=== PATIENT | female | born 1975 | race Caucasian/White ===

== ENCOUNTER → 2016-10-03 | Outpatient (CLI) | payer OTHER ==
--- NOTE | 2016-10-04 13:57 | MAMMOGRAPHY REPORT ---
BILATERAL DIGITAL SCREENING MAMMOGRAM TOMOSYNTHESIS WITH CAD: 10/03/2016 CLINICAL HISTORY: Routine screening. Baseline exam. TECHNIQUE: Breast tomosynthesis in addition to standard 2D mammography was performed. Current study was also evaluated with a Computer Aided Detection (CAD) system. COMPARISON: No prior exams were available for comparison. BREAST COMPOSITION: The tissue of both breasts is heterogeneously dense, which may obscure small mas ses. FINDINGS: There is a round completely circumscribed benign-appearing 4 mm mass in the 6:00 left breas t. A few benign-appearing right breast calcifications. No suspicious mass, architectural distortion or cluster of microcalcifications is seen. IMPRESSION: ACR BI-RADS CATEGORY 1: NEGATIVE There is no mammographic evidence of malignancy. A 1 year screening mammogram is recommended. The pa tient will receive written notification of the results. Approximately 10% of breast cancers are not detected with mammography. A negative mammographic report should not delay biopsy if a clinically suggestive mass is present. Monserrat Foster M.D. ay/:10/03/2016 17:11:02 Boiler Room Operator: Vivien HAN(Tod)(Judi)(BD), [facility] letter sent: Normal 1/2 BI-RADS Code: ACR BI-RADS Category 1: Negative
== END | disposition home or self-care (01) ==
LOC: C.MAMM 14:29
PROVIDERS: ATTEND Nurse Practitioner Women's Health
DX: Z12.31 Encounter for screening mammogram for malignant neoplasm of breast (principal)

== ENCOUNTER 2019-03-25 21:53 | Inpatient (IN) ==
[2019-03-25 22:54] LABS: Appearance Urine Cloudy (Clear); Bacteria Urine Automated Negative (Negative); Bilirubin Urine 2+ (Negative); Blood Urine Trace (Negative); Color Urine Dark Yellow; Epithelial Cell Urine Auto >30 /lpf (0-5); Glucose Urine UA Negative (Negative); Leukocyte Esterase Urine 1+ (Negative); Nitrite Urine Negative (Negative); Protein Urine 1+ (Negative); Specific Gravity Urine 1.021 (1.000-1.030); Urobilinogen Urine Negative (Negative)
[2019-03-25 22:56] LABS: Ketones Urine 4+ (Negative)
[2019-03-25 22:58] LABS: Ictotest Urine Positive (Negative)
[2019-03-25 23:02] LABS: Mucus Urine Present (None Prsent)
[2019-03-25 23:12] LABS: Basophils # (auto) 0.04 K/uL (0-0.2); Basophils % (auto) 0.8 %; Eosinophils # (auto) 0.09 K/uL (0-0.5); Eosinophils % (auto) 1.9 %; Hematocrit (blood only) 40.3 % (37-47); Hemoglobin 15.1 g/dL (12.0-16.0); Immature Granulocytes # (auto) 0.01 K/uL (0.00-0.02); Immature Granulocytes % (auto) 0.2 %; Lymphocytes # (auto) 1.35 K/uL (1.2-3.4); Mean Corpuscular Hemoglobin 30.3 pg (25-34); Mean Corpuscular Hgb Conc 37.5 g/dL (32-36); Mean Corpuscular Volume 80.8 fL (80-100); Mean Platelet Volume 10.2 fL (7.4-10.4); Monocytes # (auto) 0.76 K/uL (0.11-0.59); Monocytes % (auto) 15.8 %; Neutrophils # (auto) 2.57 K/uL (1.4-6.5); Neutrophils % (auto) 53.3 %; Platelet Count 240 K/uL (130-400); RDW Standard Deviation 40.8 fL (36.4-46.3); Red Blood Count 4.99 M/uL (4.2-5.4); White Blood Count 4.82 K/uL (4.8-10.8)
[2019-03-25] MEDS ORDERED: SODIUM CHLORIDE 0.9% 1000ML 1,000 ML IV ONE (23:15)
[2019-03-25 23:39] LABS: Alanine Aminotransferase 171 U/L (12-78); Albumin Globulin Ratio 1.2 (0.9-2); Alkaline Phosphatase 41 U/L (45-117); Aspartate Aminotransferase 113 U/L (15-37); BUN Creatinine Ratio 10.6 (10-20); Bilirubin,Total 2.3 mg/dl (0.2-1); Blood Urea Nitrogen 10 mg/dl (7-18); Calcium 9.1 mg/dl (8.5-10.1); Carbon Dioxide 25 mmol/L (21-32); Chloride 94 mmol/L (98-107); Creatine Kinase 75 U/L (26-192); Creatine Kinase MB < 1.0 ng/ml (0.5-3.6); Creatinine Clr Calc Pharmacy 66.7 ml/min; Est GFR (African American) 90.8; Est GFR (Non-African American) 78.3; Globulin 3.4 gm/dl (2.5-4.0); Glucose 98 mg/dl (70-99); Lipase 243 U/L (73-393); Potassium 2.3 mmol/L (3.5-5.1); Sodium 134 mmol/L (136-145); Total Protein 7.4 gm/dl (6.4-8.2); Troponin I < 0.015 ng/ml (0-0.045)
[2019-03-25] MEDS ORDERED: POTASSIUM CHLORIDE 20 MEQ TABCR PO STA (23:42)
[2019-03-25] MEDS ORDERED: ONDANSETRON INJ 2 MG/ML 2 ML VIAL IV STA (23:42)
[2019-03-25] MEDS ORDERED: IOVERSOL 100ml IV PRN (23:46)
[2019-03-26] MEDS ORDERED: SUCRALFATE 1 GM TAB PO STA (00:49)
[2019-03-26] MEDS ORDERED: GI COCKTAIL ED USE PO ONE (00:49)
[2019-03-26] MEDS ORDERED: FAMOTIDINE 40 MG TABLET PO ONE (00:49)
--- NOTE | 2019-03-26 02:04 | Emergency Department Note ---
Entered by Anni Hills acting as a scribe for History of Present Illness General Chief complaint: Abdominal Pain Stated complaint: STOMACH DISCOMFORT Time Seen by Provider: 03/25/19 22:18 Source: patient Mode of arrival: ambulatory Limitations: no limitations History of Present Illness Onset (ago): week(s) 1 Location: abdomen Radiation: non-radiation Pain Consistency: + constant Maximum Pain Intensity: 6 Current Pain Intensity: 6 Relieved By: + none Exacerbated By: + none Associated symptoms: + loss of appetite and + nausea/vomiting Treatments prior to arrival: none The patient is a 43 year old female who presents to the Emergency Room with complaints of abdominal pain. She rates her discomfort as a 6/10 in severity. Her pain is not worsened by palpation. She states the pain started last week and she has also had difficulty eating due to a loss of appetite. She report she has not eaten in 2 weeks. She complains of nausea and vomiting. She denies any history of marijuana smoking. Home Medications Home Medications Medication Instructions Recorded Confirmed Type amoxicillin 500 mg PO TID 10 Days #30 cap 03/26/19 Rx famotidine [Pepcid] 40 mg PO HS #30 tab 03/26/19 Rx ondansetron HCl [Zofran] 4 mg PO Q6H PRN #6 tab 03/26/19 Rx Allergies Allergy/AdvReac Type Severity Reaction Status Date / Time ibuprofen AdvReac Intermediate stomach Verified 11/21/12 09:12 ulcers Past Med/Surg History Medical History Abdominal pain (Acute) Constipation (Acute) Headache (Acute) Ulcerated, duodenum (Resolved) Social History Preferred Language: Mongolian Communication Ability: Effective Iv Therapy Nurse Required: No Beliefs That Will Affect Care: None Current Living Situation: Other Current Living Situation Comment: Roommate Other Information That Helps Us Care for You: No Feels Safe at Home: Yes Safety Concerns: Feels Safe At This Time Smoking Status: Never smoker Hx Alcohol Use: No Hx Substance Use: No Review of Systems See HPI for pertinent positives & negatives. and A total of 10 systems reviewed and were otherwise negative Physical Exam Vital Signs Vital Signs - 24 hr 03/25/19 22:05 03/26/19 00:19 03/26/19 01:03 Temperature 36.5 C Temperature Source Oral Pulse Rate 102 H Pulse Rate [Right] 87 84 Pulse Rhythm [Right] Regular Pulse Strength [Right] Normal Respiratory Rate 22 16 16 Respiratory Effort / Characteristics Non-Labored Spontaneous Non-Labored Spontaneous Respiratory Depth Normal Normal Blood Pressure 108/81 Blood Pressure [Right Arm] 127/84 127/79 Blood Pressure Mean 90 Blood Pressure Mean [Right Arm] 98 95 Blood Pressure Position Sitting Blood Pressure Position [Right Arm] Lying Sitting Pulse Oximetry 97 98 98 Oxygen Delivery Method Room Air Room Air Sepsis Recent Fever Within 48 Hours No Sepsis New/Unexplained Change in Mental Status No Sepsis Action Taken by Nursing No Action Required GENERAL: Awake, alert, cachectic-appearing, in no acute distress HENT: Normocephalic, atraumatic. Oropharynx unremarkable. EYES: Normal conjunctiva. Sclera non-icteric. NECK: Supple. No nuchal rigidity. FROM. No JVD. RESPIRATORY: Clear to auscultation. CARDIAC: Regular rate, normal rhythm. Extremities warm and well perfused. Pulses equal. ABDOMEN: Soft, non-distended. No tenderness to palpation. No rebound or guarding. No masses. RECTAL: Deferred. MUSCULOSKELETAL: Chest examination reveals no tenderness. The back is symmetrical on inspection without obvious abnormality. There is no CVA tenderness to palpation. No joint edema. LOWER EXTREMITIES: Calves are equal size bilaterally and non-tender. No edema. No discoloration. NEURO: Normal sensorium. No sensory or motor deficits noted. SKIN: No rash or jaundice noted. Course Course 222: The patient was evaluated in room A9. A complete history and physical were performed. 2258: Nursing states the patients labs came back with 4+ Ketones. 0125: Nursing informed me the patient would like to remain in the hospital for further evaluation and management because she does not feel she can go home. I will contact the hospital medicine team. 0145: I discussed the patients case with Dr. Nye, [facility] Hospitalist. The patient will be further evaluated. Administered Medications Sodium Chloride (Nss 1000ml) 1,000 mls @ 100 mls/hr IV .Q10H KYLEE Stop: 04/25/19 17:14 Last Admin: 03/28/19 13:15 Dose: 100 mls/hr Documented by: [id number] Infusion: 03/28/19 13:15 Dose: 100 mls/hr Documented by: [id number] Admin: 03/28/19 05:14 Dose: 100 mls/hr Documented by: [id number] Infusion: 03/28/19 04:33 Dose: 100 mls/hr Documented by: [id number] Admin: 03/27/19 18:33 Dose: 100 mls/hr Documented by: [id number] Infusion: 03/27/19 18:00 Dose: 100 mls/hr Documented by: [id number] Infusion: 03/27/19 17:00 Dose: 100 mls/hr Documented by: [id number] Infusion: 03/27/19 11:35 Dose: 0 mls/hr Documented by: [id number] Admin: 03/27/19 02:35 Dose: 100 mls/hr Documented by: [id number] Infusion: 03/27/19 02:35 Dose: 100 mls/hr Documented by: [id number] Admin: 03/26/19 17:20 Dose: 100 mls/hr Documented by: [id number] Famotidine 20 mg/ Syringe 5 mls @ 2.5 mls/min IV QAM KYLEE Stop: 04/26/19 08:59 Last Admin: 03/28/19 12:17 Dose: 2.5 mls/min Documented by: [id number] Admin: 03/27/19 09:39 Dose: 2.5 mls/min Documented by: [id number] Magnesium Oxide (Mag-Ox) 400 mg PO BID KYLEE Stop: 04/25/19 08:59 Last Admin: 03/28/19 08:06 Dose: Not Given Documented by: [id number] Admin: 03/27/19 21:36 Dose: Not Given Documented by: [id number] Admin: 03/27/19 09:39 Dose: 400 mg Documented by: [id number] Admin: 03/26/19 20:42 Dose: 400 mg Documented by: [id number] Admin: 03/26/19 08:53 Dose: 400 mg Documented by: [id number] Ondansetron HCl (Zofran) 4 mg IV Q6H PRN PRN Reason: Nausea Stop: 04/25/19 05:00 Last Admin: 03/28/19 04:26 Dose: 4 mg Documented by: [id number] Admin: 03/27/19 20:42 Dose: 4 mg Documented by: [id number] Admin: 03/26/19 20:37 Dose: 4 mg Documented by: [id number] Admin: 03/26/19 09:03 Dose: 4 mg Documented by: [id number] Discontinued Medications Al Hydrox/Mg Hydrox/Simethicone () 1 dose PO ONE ONE Stop: 03/26/19 00:50 Last Admin: 03/26/19 00:57 Dose: 1 dose Documented by: [id number] Famotidine (Pepcid) 40 mg PO NOW ONE Stop: 03/26/19 00:50 Last Admin: 03/26/19 01:01 Dose: 40 mg Documented by: [id number] Sodium Chloride (Nss 1000ml) 1,000 mls @ 999 mls/hr IV .Q1H1M ONE Stop: 03/26/19 00:15 Last Infusion: 03/26/19 00:38 Dose: 0 mls/hr Documented by: [id number] Admin: 03/25/19 23:26 Dose: 999 mls/hr Documented by: [id number] Potassium Chloride 40 meq/ (Lactated Ringer's) 1,020 mls @ 100 mls/hr IV .[id number] KYLEE Stop: 04/25/19 05:29 Last Admin: 03/26/19 16:44 Dose: Not Given Documented by: [id number] Infusion: 03/26/19 16:43 Dose: 0 mls/hr Documented by: [id number] Infusion: 03/26/19 13:49 Dose: 0 mls/hr Documented by: [id number] Infusion: 03/26/19 07:12 Dose: 100 mls/hr Documented by: [id number] Infusion: 03/26/19 06:30 Dose: 0 mls/hr Documented by: [id number] Admin: 03/26/19 05:26 Dose: 100 mls/hr Documented by: [id number] Famotidine 20 mg/ Syringe 5 mls @ 2.5 mls/min IV ONE ONE Stop: 03/26/19 05:31 Last Admin: 03/26/19 05:26 Dose: 2.5 mls/min Documented by: [id number] Potassium Phosphate 24 mmol/ (Sodium Chloride) 508 mls @ 88 mls/hr IV ONE ONE Stop: 03/26/19 12:16 Last Infusion: 03/26/19 16:45 Dose: 0 mls/hr Documented by: [id number] Admin: 03/26/19 06:30 Dose: 88 mls/hr Documented by: [id number] Sodium Chloride (Nss 1000ml) 1,000 mls @ 15 mls/hr IV .Q24H KYLEE Stop: 03/27/19 14:44 Last Admin: 03/28/19 07:35 Dose: Not Given Documented by: [id number] Lactated Ringer's (Lr) 1,000 mls @ 100 mls/hr IV .Q10H KYLEE Stop: 04/25/19 16:44 Last Infusion: 03/26/19 17:20 Dose: 0 mls/hr Documented by: [id number] Admin: 03/26/19 16:47 Dose: 100 mls/hr Documented by: [id number] Potassium Phosphate 15 mmol/ (Sodium Chloride) 255 mls @ 88 mls/hr IV ONE ONE Stop: 03/26/19 19:53 Last Infusion: 03/26/19 21:23 Dose: 0 mls/hr Documented by: [id number] Admin: 03/26/19 17:24 Dose: 88 mls/hr Documented by: [id number] Potassium Chloride (K Bony / Wtr) 10 meq in 100 mls @ 100 mls/hr IV Q1H KYLEE Stop: 03/28/19 12:13 Last Infusion: 03/28/19 13:20 Dose: 0 mls/hr Documented by: [id number] Admin: 03/28/19 12:16 Dose: 100 mls/hr Documented by: [id number] Infusion: 03/28/19 12:16 Dose: 100 mls/hr Documented by: [id number] Admin: 03/28/19 12:16 Dose: 100 mls/hr Documented by: [id number] Infusion: 03/28/19 11:41 Dose: 0 mls/hr Documented by: [id number] Admin: 03/28/19 08:12 Dose: 100 mls/hr Documented by: [id number] Infusion: 03/28/19 08:12 Dose: 100 mls/hr Documented by: [id number] Admin: 03/28/19 08:12 Dose: 100 mls/hr Documented by: [id number] Piperacillin Sod/Tazobactam (Sod 3.375 gm/ Dextrose) 115 mls @ 230 mls/hr IV NOW ONE; Protocol Stop: 03/28/19 12:29 Last Infusion: 03/28/19 13:20 Dose: 0 mls/hr Documented by: [id number] Admin: 03/28/19 12:16 Dose: 230 mls/hr Documented by: [id number] Ioversol (Optiray 320 100ml) 100 ml IV ONCE PRN PRN Reason: Interaction Checking Stop: 03/29/19 23:45 Last Admin: 03/25/19 23:46 Dose: 92 ml Documented by: [id number] Lidocaine HCl (Xylocaine 2%) Confirm Administered Dose 4 ml INFIL .STK-MED ONE Stop: 03/26/19 15:06 Last Admin: 03/28/19 08:06 Dose: Not Given Documented by: [id number] Ondansetron HCl (Zofran) 4 mg IV NOW STA Stop: 03/25/19 23:43 Last Admin: 03/25/19 23:45 Dose: 4 mg Documented by: [id number] Pantoprazole Sodium (Protonix) 40 mg PO ONE ONE Stop: 03/26/19 05:31 Last Admin: 03/26/19 05:26 Dose: 40 mg Documented by: [id number] Potassium Chloride (Klor-Con M20) 40 meq PO NOW STA Stop: 03/25/19 23:43 Last Admin: 03/25/19 23:45 Dose: 40 meq Documented by: [id number] Propofol (Diprivan) Confirm Administered Dose 200 mg IV .STK-MED ONE Stop: 03/26/19 15:06 Last Admin: 03/28/19 08:06 Dose: Not Given Documented by: [id number] Sucralfate (Carafate Tab) 1 gm PO NOW STA Stop: 03/26/19 00:50 Last Admin: 03/26/19 00:57 Dose: 1 gm Documented by: [id number] Medical Decision Making Differential Diagnosis Differential diagnoses includes but is not limited to gastritis, peptic ulcer disease, GERD, gallbladder disease, pancreatitis, small bowel obstruction, acute coronary syndrome, pericarditis, ischemic bowel, irritable bowel disease, irritable bowel syndrome, appendicitis, diverticulitis, malignancy, hernia, urinary tract infection, torsion, /ectopic , perforation, trauma, infectious. Medical Records Attestation: I reviewed the patient's medical records. Home Medications Current Medication List: was personally reviewed by me Laboratory Data Attestation: I reviewed the patient's lab results. Result diagrams: 03/28/19 05:52 03/28/19 05:52 Lab Results 03/25/19 03/25/19 03/25/19 Range/Units 22:17 22:17 22:17 WBC 4.82 (4.8-10.8) K/uL RBC 4.99 (4.2-5.4) M/uL Hgb 15.1 (12.0-16.0) g/dL Hct 40.3 (37-47) % MCV 80.8 (80-100) fL MCH 30.3 (25-34) pg MCHC 37.5 H (32-36) g/dL RDW Std Deviation 40.8 (36.4-46.3) fL RDW Coeff of Rosalinda 14.0 (11.5-14.5) % Plt Count 240 (130-400) K/uL MPV 10.2 (7.4-10.4) fL Immature Gran % (Auto) 0.2 % Neut % (Auto) 53.3 % Lymph % (Auto) 28.0 % Lares % (Auto) 15.8 % Eos % (Auto) 1.9 % Baso % (Auto) 0.8 % Immature Gran # (Auto) 0.01 (0.00-0.02) K/uL Neut # (Auto) 2.57 (1.4-6.5) K/uL Lymph # (Auto) 1.35 (1.2-3.4) K/uL Lares # (Auto) 0.76 H (0.11-0.59) K/uL Eos # (Auto) 0.09 (0-0.5) K/uL Baso # (Auto) 0.04 (0-0.2) K/uL Sodium 134 L (136-145) mmol/L Potassium 2.3 L* (3.5-5.1) mmol/L Chloride 94 L (98-107) mmol/L Carbon Dioxide 25 (21-32) mmol/L Anion Gap 14.0 H (3-11) BUN 10 (7-18) mg/dl Creatinine 0.90 (0.6-1.2) mg/dl Est Cr Clr Drug Dosing 66.7 ml/min Est GFR ( Amer) 90.8 Est GFR (Non-Af Amer) 78.3 BUN/Creatinine Ratio 10.6 (10-20) Glucose 98 (70-99) mg/dl Calcium 9.1 (8.5-10.1) mg/dl Total Bilirubin 2.3 H (0.2-1) mg/dl AST 113 H (15-37) U/L ALT 171 H (12-78) U/L Alkaline Phosphatase 41 L (45-117) U/L Total Creatine Kinase 75 (26-192) U/L CK-MB (CK-2) < 1.0 (0.5-3.6) ng/ml CK/CKMB % Calc TNP Troponin I < 0.015 (0-0.045) ng/ml Total Protein 7.4 (6.4-8.2) gm/dl Albumin 4.0 (3.4-5.0) gm/dl Globulin 3.4 (2.5-4.0) gm/dl Albumin/Globulin Ratio 1.2 (0.9-2) Lipase 243 (73-393) U/L HCG, Quant < 1 mIU/ml Urine Color Urine Appearance (Clear) Urine pH (4.5-7.5) Ur Specific [place] (1.000-1.030) Urine Protein (Negative) Urine Glucose (UA) (Negative) Urine Ketones (Negative) Urine Blood (Negative) Urine Nitrite (Negative) Urine Bilirubin (Negative) Urine Urobilinogen (Negative) Ur Leukocyte Esterase (Negative) Urine WBC (Auto) (0-5) /hpf Urine RBC (Auto) (0-4) /hpf U Hyaline Cast (Auto) (0-5) /lpf U Epithel Cells (Auto) (0-5) /lpf Urine Bacteria (Auto) (Negative) Ur Renal Epithelial Cell (0-5) /lpf Urine Mucus (None Prsent) 03/25/19 Range/Units 22:17 WBC (4.8-10.8) K/uL RBC (4.2-5.4) M/uL Hgb (12.0-16.0) g/dL Hct (37-47) % MCV (80-100) fL MCH (25-34) pg MCHC (32-36) g/dL RDW Std Deviation (36.4-46.3) fL RDW Coeff of Rosalinda (11.5-14.5) % Plt Count (130-400) K/uL MPV (7.4-10.4) fL Immature Gran % (Auto) % Neut % (Auto) % Lymph % (Auto) % Lares % (Auto) % Eos % (Auto) % Baso % (Auto) % Immature Gran # (Auto) (0.00-0.02) K/uL Neut # (Auto) (1.4-6.5) K/uL Lymph # (Auto) (1.2-3.4) K/uL Lares # (Auto) (0.11-0.59) K/uL Eos # (Auto) (0-0.5) K/uL Baso # (Auto) (0-0.2) K/uL Sodium (136-145) mmol/L Potassium (3.5-5.1) mmol/L Chloride (98-107) mmol/L Carbon Dioxide (21-32) mmol/L Anion Gap (3-11) BUN (7-18) mg/dl Creatinine (0.6-1.2) mg/dl Est Cr Clr Drug Dosing ml/min Est GFR ( Amer) Est GFR (Non-Af Amer) BUN/Creatinine Ratio (10-20) Glucose (70-99) mg/dl Calcium (8.5-10.1) mg/dl Total Bilirubin (0.2-1) mg/dl AST (15-37) U/L ALT (12-78) U/L Alkaline Phosphatase (45-117) U/L Total Creatine Kinase (26-192) U/L CK-MB (CK-2) (0.5-3.6) ng/ml CK/CKMB % Calc Troponin I (0-0.045) ng/ml Total Protein (6.4-8.2) gm/dl Albumin (3.4-5.0) gm/dl Globulin (2.5-4.0) gm/dl Albumin/Globulin Ratio (0.9-2) Lipase (73-393) U/L HCG, Quant mIU/ml Urine Color Dark Yellow Urine Appearance Cloudy A (Clear) Urine pH 6.0 (4.5-7.5) Ur Specific [place] 1.021 (1.000-1.030) Urine Protein 1+ H (Negative) Urine Glucose (UA) Negative (Negative) Urine Ketones 4+ H (Negative) Urine Blood Trace H (Negative) Urine Nitrite Negative (Negative) Urine Bilirubin 2+ H (Negative) Urine Urobilinogen Negative (Negative) Ur Leukocyte Esterase 1+ H (Negative) Urine WBC (Auto) 5-10 H (0-5) /hpf Urine RBC (Auto) 5-10 H (0-4) /hpf U Hyaline Cast (Auto) 10-30 H (0-5) /lpf U Epithel Cells (Auto) >30 H (0-5) /lpf Urine Bacteria (Auto) Negative (Negative) Ur Renal Epithelial Cell 5-10 H (0-5) /lpf Urine Mucus Present A (None Prsent) Imaging Data My Impression: CHEST X-RAY, 2 VIEWS No evidence of pneumonia, congestion or pneumothorax. Radiologist's Impression: Radiology results as stated below per my review and the radiologist's interpretation: CT ABDOMEN AND PELVIS WITHOUT CONTRAST Normal gallbladder. Negative for ductal dilation. Normal kidneys. Negative for hydronephrosis. Normal appendix. No inflammatory change or signs of obstruction. Bones: no lystic or blastic bony lesion. Impression: No acute findings. Radiologist: Dr. Hong Cowan MD ECG Data Attestation: I personally reviewed and interpreted this ECG as follows: Indication: + abdominal pain Rate (beats per minute): 83 Rhythm: + normal sinus ECG ST segments: no ST depression and no ST elevation Blood Pressure Blood Pressure Findings: Normal blood pressure Blood Pressure Disposition: did not require urgent referral MDM Narrative It should be noted that this patient presented significant barriers to her own care during a period of high volume and high acuity. I spent extensive time counseling this patient at least 30 minutes. I made several recommendations to this patient including IV Zofran as well as fluids as well as IV contrast for CAT scan. The patient refused all of this. She is unsure if I know how to treat malnutrition as she has not eaten in 2 weeks. I will note that the patient is able to tolerate potassium here in the emergency department. She is hypokalemic. She was sent for CAT scan of the abdomen pelvis which does not show any acute process however the patient has a history of duodenal ulcers and I suspect that this is the problem. She was given a GI cocktail Pepcid and Carafate here in the emergency department which I was I will also note she is able to tolerate. The patient originally wished to be discharged home however after consulting family and friends she wishes to be admitted. I did discuss the case the hospitalist service who did agree to admit the patient. Impression & Plan Acute epigastric pain, Malnutrition, Acute hypokalemia Discharge Plan Visit Data *Final* Discharge Date/Time: 03/26/19 04:49 Chief Complaint: Abdominal Pain Stated Complaint: STOMACH DISCOMFORT ED Provider: Puma Ruiz Discharge Problem: Acute epigastric pain, Malnutrition, Acute hypokalemia Patient Disposition: Admitted As Inpatient Discharge Instructions Interventions: ED Discharge Assessment Last Done: 03/26/19 04:49 Discharge Problem: Malnutrition Qualifiers: Malnutrition type: unspecified type Qualified Code(s): E46 - Unspecified protei n-calorie malnutrition The scribe's documentation has been prepared under my direction and personally reviewed by me in its entirety. I confirm that the note above accurately reflects all work, treatment, procedures, and medical decision making performed by me.
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
[2019-03-26] MEDS ORDERED: ACETAMINOPHEN 325 MG TAB PO PRN (05:01)
[2019-03-26] MEDS ORDERED: PANTOprazole 40 MG TAB PO STA (05:01)
[2019-03-26] MEDS: POTASSIUM CHLORIDE 40 MEQ in LACTATED RINGER'S 1,000 ML IV SCH ×2 (05:26→16:44)
[2019-03-26] MEDS ORDERED: FAMOTIDINE 20 MG in SYRINGE 3 ML IV ONE (05:30)
[2019-03-26] MEDS ORDERED: FAMOTIDINE 20MG/5ML IV PUSH IV ONE (05:30)
[2019-03-26] MEDS ORDERED: PANTOprazole 40 MG TAB PO ONE (05:30)
[2019-03-26] MEDS ORDERED: POTASSIUM PHOS 3 MMOL/1 ML INFUSION IV STA ×2 (06:06→16:40)
[2019-03-26] MEDS ORDERED: POTASSIUM PHOSPHATE 24 MMOL in SODIUM CHLORIDE 0.9% 500 ML IV ONE (06:30)
--- NOTE | 2019-03-26 06:43 | Billing Data ---
Date of Service March 26, 2019 Coding Level of Care Code 28055 Initial Inpt Care Lvl 2
--- NOTE | 2019-03-26 06:59 | XRay Report ---
XR chest 1V portable CLINICAL HISTORY: 43 years-old Female presenting with Pt c/o emesis. TECHNIQUE: Portable upright AP view of the chest was obtained. COMPARISON: 02/22/2012. FINDINGS: Cardiomediastinal silhouette normal. No focal opacity. No large effusion or pneumothorax. Osseous str uctures normal. Upper abdomen normal. IMPRESSION: 1. No acute cardiopulmonary disease. ACT 112: Negative or not required by law. Electronically signed by: Beny Richards M.D. 03/26/2019 6:58 AM
--- NOTE | 2019-03-26 07:04 | CT Scan Report ---
CT abd pelvis wo con CLINICAL HISTORY: 43 years-old Female presenting with Pt c/o emesis, anorexia. TECHNIQUE: Multidetector CT of the abdomen and pelvis was performed without the use of intravenous co ntrast. IV contrast: None. One or more dose lowering techniques were used consistent with the princip les of ALA (as low as reasonably achievable), including automatic exposure control, mA or kV adjust ment to individual patient size, and/or use of iterative reconstruction. COMPARISON: None. CT DOSE (mGy.cm): The estimated cumulative dose is 242.87 mGy.cm. FINDINGS: Pharmacy District Manager topogram: Unremarkable. Lung bases: Normal heart size. No pericardial or pleural effusion. No focal infiltrate or nodule at t he lung bases. Liver: Normal morphology. Density suggestive of mild hepatic steatosis. Biliary: No gross biliary ductal dilatation allowing for noncontrast technique. Normal gallbladder. Pancreas: Normal noncontrast appearance. Spleen: Normal noncontrast appearance. Adrenal glands: Normal noncontrast appearance. Kidneys and ureters: Normal noncontrast appearance. No nephrolithiasis. No hydronephrosis. Normal ure ters. Bladder: Incompletely evaluated secondary to underdistention. Pelvic organs: Normal noncontrast appearance. Bowel: Normal appendix. No bowel obstruction. Peritoneal cavity: No free fluid or intraperitoneal gas. Lymph nodes: No gross lymphadenopathy allowing for noncontrast technique. Vasculature: Normal noncontrast appearance. Abdominal wall: Normal. Musculoskeletal: Normal. IMPRESSION: 1. Allowing for noncontrast technique, no acute intra-abdominal pathology. 2. Possible mild hepatic steatosis. ACT 112: Negative or not required by law. Electronically signed by: Beny Richards M.D. 03/26/2019 7:03 AM
[2019-03-26] MEDS: MAGNESIUM OXIDE 400 MG TAB PO SCH ×2 (08:53→20:42)
[2019-03-26] MEDS: ONDANSETRON INJ 2 MG/ML 2 ML VIAL IV PRN ×2 (09:03→20:37)
[2019-03-26 09:29] LABS: Hepatitis B Surface Antigen Neg (Neg)
[2019-03-26 09:57] LABS: Hepatitis C IgG 13Yrs+Old_Rflx Neg (Neg)
[2019-03-26 10:50] LABS: Calcium 8.4 mg/dl (8.5-10.1); Creatinine Clr Calc Pharmacy 82.2 ml/min; Est GFR (African American) 116.9; Est GFR (Non-African American) 100.9; Potassium 3.4 mmol/L (3.5-5.1)
--- NOTE | 2019-03-26 14:17 | Electrocardiogram Report ---
Test Reason : Blood Pressure : / mmHG Vent. Rate : 083 BPM Atrial Rate : 083 BPM P-R Int : 130 ms QRS Dur : 086 ms QT Int : 366 ms P-R-T Axes : 070 077 074 degrees QTc Int : 430 ms Poor data quality, interpretation may be adversely affected Normal sinus rhythm Normal ECG When compared with ECG of 09-DEC-2011 16:20, HR has decreased T wave inversion no longer evident in Inferior leads Confirmed by Bryce Dove ([id number]) on 03/26/2019 2:16:52 PM Referred By: REFERRED SELF Confirmed By:Bryce Dove
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
[2019-03-26] MEDS ORDERED: fentaNYL citrate 100 MCG/2 ML VIAL IV PRN (14:34)
[2019-03-26] MEDS ORDERED: ATROPINE SULFATE 0.1 MG/ML 10ML SYR IV PRN (14:34)
[2019-03-26] MEDS ORDERED: PROMETHAZINE HCL 12.5 MG in SODIUM CHLORIDE 0.9% 50 ML IV PRN (14:34)
[2019-03-26] MEDS ORDERED: ONDANSETRON INJ 2 MG/ML 2 ML VIAL IV PRN (14:34)
[2019-03-26] MEDS ORDERED: ePHEDrine sulfate 50 MG/ML AMP IV PRN (14:34)
--- NOTE | 2019-03-26 14:36 | History & Physical Report ---
Date of Service March 26, 2019 History of Present Illness Chief Complaint: N and V Primary Care Provider: [facility] [place] [facility] Allergies Allergy/AdvReac Type Severity Reaction Status Date / Time ibuprofen AdvReac Intermediate stomach Verified 11/21/12 09:12 ulcers Home Medications Home Medications Medication Instructions Recorded Confirmed Type amoxicillin 500 mg PO TID 10 Days #30 cap 03/26/19 Rx famotidine [Pepcid] 40 mg PO HS #30 tab 03/26/19 Rx ondansetron HCl [Zofran] 4 mg PO Q6H PRN #6 tab 03/26/19 Rx Past Med/Surg History Medical History Abdominal pain (Acute) Constipation (Acute) Headache (Acute) Ulcerated, duodenum (Resolved) Social History Preferred Language: Brazilian Communication Ability: Effective Fabricator Special Items Required: No Beliefs That Will Affect Care: None Current Living Situation: Other Current Living Situation Comment: Roommate Other Information That Helps Us Care for You: No Feels Safe at Home: Yes Safety Concerns: Feels Safe At This Time Smoking Status: Never smoker Hx Alcohol Use: No Hx Substance Use: No Physical Exam Constitutional: well developed and well nourished Respiratory: normal respiratory effort Cardiovascular: Rate/Rhythm: regular rate and regular rhythm Gastrointestinal (Abdomen): Percussion/Palpation: abdomen soft Results & Data Vital Signs (Past 12 Hours) Vital Signs Temp Pulse Pulse Resp BP BP Pulse Ox 03/26/19 14:06 36.8 C 70 18 103/77 99 03/26/19 11:46 36.6 C 81 18 105/71 99 03/26/19 07:38 68 03/26/19 07:33 37.0 C 65 18 105/71 98 03/26/19 05:49 36.6 C 71 18 104/71 95 03/26/19 05:00 86 03/26/19 04:49 76 18 101/71 97 03/26/19 04:00 77 16 109/73 96 03/26/19 03:05 93 H 24 122/73 98 Code Status & VTE Plan VTE Prophylaxis Plan VTE Prophylaxis will be ordered: Yes
[2019-03-26] MEDS ORDERED: SODIUM CHLORIDE 0.9% 1000ML 1,000 ML IV SCH (14:45)
--- NOTE | 2019-03-26 15:01 | GI REPORT ---
Patient Name: Tania Romero Procedure Date: 03/26/2019 2:53 PM Date of : 1975 Admit Type: Inpatient Age: 43 Gender: Female Attending MD: Humphrey Dai MD Procedure: Upper GI endoscopy Providers: Humphrey Dai MD Referring MD: Joan Cowan Indications: Epigastric abdominal pain, Nausea with vomiting Medicines: Propofol total dose 100 mg IV, Lidocaine 60 mg IV Complications: No immediate complications. Estimated Blood Loss: Estimated blood loss: none. Procedure: Pre-Anesthesia Assessment: - Prior to the procedure, a History and Physical was performed, and patient medications, allergies and sensitivities were reviewed. The patient's tolerance of previous anesthesia was reviewed. - The risks and benefits of the procedure and the sedation options and risks were discussed with the patient. All questions were answered and informed consent was obtained. After obtaining informed consent, the endoscope was passed under direct vision. Throughout the procedure, the patient's blood pressure, pulse, and oxygen saturations were monitored continuously. The Endoscope was introduced through the mouth, and advanced to the second part of duodenum. The upper GI endoscopy was accomplished without difficulty. The patient tolerated the procedure well. Findings: The Z-line was regular and was found 35 cm from the incisors. The examined esophagus was normal. The entire examined stomach was normal. The examined duodenum was normal. Impression: - Z-line regular, 35 cm from the incisors. - Normal esophagus. - Normal stomach. - Normal examined duodenum. - No specimens collected. Recommendation: - [facility]. Humphrey Dai M.D. Humphrey Dai MD 03/26/2019 3:01:26 PM This report has been signed electronically. Note Initiated On: 03/26/2019 2:53 PM Number of Addenda: 0 I attest to the content of the Intraoperative Record and orders documented therein, exceptions below {[id number]}
[2019-03-26] MEDS ORDERED: PROPOFOL IV EMULSION 10 MG/ML 20 ML VIAL IV ONE (15:05)
[2019-03-26] MEDS ORDERED: LIDOCAINE HCL 2% 2 ML VIAL/AMP(20MG/ML) INFIL ONE (15:05)
--- NOTE | 2019-03-26 15:06 | Hospitalist Progress Note ---
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 Acute epigastric pain: - Transaminitis on initial labs CT abdomen shows no acute pathology, no signs of gallbladder disease. - Patient with a history of gastric/duodenal ulcers, very high recent stress with pain feeling similar. - EGD did not demonstrate any concerns for duodenal ulcers; - Protonix 40 mg daily - Famotidine IV push daily - Continue clear diet - advance in am Electrolyte abnormality: - Likely due to malnutrition in the setting of anorexia and emesis; Concern for severe nutritional depletion given patient's frail appearance and report of almost no food intake for 2 or more weeks - continue to monitor and replete as needed Transaminitis: - with elevated alk phos - No signs of acute cholecystitis on imaging - Hepatitis panel pending Stress/anxiety: with recent unstable home environment; Currently feels safe with her other female remain, notes her main social support here is her partner who lives in [place]. Her family is from [facility]. Diet: Clear liquids DVT prophylaxis: SCDs. Patient prefers to minimize unnatural medications. Code: Full code (2) Constipation: (3) Abdominal pain: (4) Malnutrition: Admission and Anticipated Discharge Date Admission Date: March 26, 2019 Supervising Physician Co-Signing Physician Notes Resident Physician Supervision Note: I independently interviewed and examined the patient and verified the mendoza history and physical, reviewed labs and image studies, discussed the case with the resident Dr. Johnson and agree with the findings and care plan. Subjective Patient continues to have abdominal pain, with associated nausea and vomiting. This has been consistent over the last week, and had worsened up until the point where she decided to come to be seen and evaluated. Has a known history of duodenal ulcers that were diagnosed after an EGD that was performed while back in [facility]. Prior to this most recent nausea and vomiting, she has had approximately 11kg of weight loss and has had decreased appetite over this time. With family history of both colon cancer and lung cancer. Review of Systems Review of Systems: All systems reviewed & are unremarkable except as noted in Subjective Physical Exam Constitutional: well developed and + thin Eyes: PERRL, conjunctivae normal, anicteric sclerae Respiratory: normal respiratory effort, lungs clear to auscultation Cardiovascular: RRR, no murmur, no edema Gastrointestinal (Abdomen): Percussion/Palpation: + abdomen tender (epigastric) and abdomen soft; no guarding, abdomen not rigid, no hepatosplenomegaly, no hernia and no abdominal mass Skin: + turgor decreased Results & Data ([facility]) Vital Signs (Past 12 Hours) Vital Signs Temp Pulse Pulse Resp BP BP Pulse Ox 03/26/19 14:06 36.8 C 70 18 103/77 99 03/26/19 11:46 36.6 C 81 18 105/71 99 03/26/19 07:38 68 03/26/19 07:33 37.0 C 65 18 105/71 98 03/26/19 05:49 36.6 C 71 18 104/71 95 03/26/19 05:00 86 03/26/19 04:49 76 18 101/71 97 03/26/19 04:00 77 16 109/73 96 Laboratory Results 03/26/19 03/26/19 03/26/19 Range/Units 15:56 09:58 05:16 WBC (4.8-10.8) K/uL RBC (4.2-5.4) M/uL Hgb (12.0-16.0) g/dL Hct (37-47) % MCV (80-100) fL MCH (25-34) pg MCHC (32-36) g/dL RDW Std Deviation (36.4-46.3) fL RDW Coeff of Rosalinda (11.5-14.5) % Plt Count (130-400) K/uL MPV (7.4-10.4) fL Immature Gran % (Auto) % Neut % (Auto) % Lymph % (Auto) % [place] % (Auto) % Eos % (Auto) % Baso % (Auto) % Immature Gran # (Auto) (0.00-0.02) K/uL Neut # (Auto) (1.4-6.5) K/uL Lymph # (Auto) (1.2-3.4) K/uL [place] # (Auto) (0.11-0.59) K/uL Eos # (Auto) (0-0.5) K/uL Baso # (Auto) (0-0.2) K/uL Sodium 139 (136-145) mmol/L Potassium 3.4 L D (3.5-5.1) mmol/L Chloride 103 (98-107) mmol/L Carbon Dioxide 25 (21-32) mmol/L Anion Gap 11.0 (3-11) BUN 7 (7-18) mg/dl Creatinine 0.73 (0.6-1.2) mg/dl Est Cr Clr Drug Dosing 82.2 ml/min Est GFR ( Amer) 116.9 Est GFR (Non-Af Amer) 100.9 BUN/Creatinine Ratio 9.0 L (10-20) Glucose 85 (70-99) mg/dl Calcium 8.4 L (8.5-10.1) mg/dl Phosphorus (2.5-4.9) mg/dl Magnesium (1.8-2.4) mg/dl Total Bilirubin (0.2-1) mg/dl AST (15-37) U/L ALT (12-78) U/L Alkaline Phosphatase (45-117) U/L Total Creatine Kinase (26-192) U/L CK-MB (CK-2) (0.5-3.6) ng/ml CK/CKMB % Calc Troponin I (0-0.045) ng/ml Total Protein (6.4-8.2) gm/dl Albumin (3.4-5.0) gm/dl Globulin (2.5-4.0) gm/dl Albumin/Globulin Ratio (0.9-2) Lipase (73-393) U/L HCG, Quant mIU/ml Urine Color Urine Appearance (Clear) Urine pH (4.5-7.5) Ur Specific [place] (1.000-1.030) Urine Protein (Negative) Urine Glucose (UA) (Negative) Urine Ketones (Negative) Urine Blood (Negative) Urine Nitrite (Negative) Urine Bilirubin (Negative) Urine Urobilinogen (Negative) Ur Leukocyte Esterase (Negative) Urine WBC (Auto) (0-5) /hpf Urine RBC (Auto) (0-4) /hpf U Hyaline Cast (Auto) (0-5) /lpf U Epithel Cells (Auto) (0-5) /lpf Urine Bacteria (Auto) (Negative) Ur Renal Epithelial Cell (0-5) /lpf Urine Mucus (None Prsent) Hepatitis A IgM Ab Pending Hep Bs Antigen (Neg) Hep B Core IgM Ab Pending Hepatitis C Antibody (Neg) Monoscreen Pending 03/26/19 03/26/19 03/25/19 Range/Units 05:16 05:16 22:17 WBC (4.8-10.8) K/uL RBC (4.2-5.4) M/uL Hgb (12.0-16.0) g/dL Hct (37-47) % MCV (80-100) fL MCH (25-34) pg MCHC (32-36) g/dL RDW Std Deviation (36.4-46.3) fL RDW Coeff of Rosalinda (11.5-14.5) % Plt Count (130-400) K/uL MPV (7.4-10.4) fL Immature Gran % (Auto) % Neut % (Auto) % Lymph % (Auto) % [place] % (Auto) % Eos % (Auto) % Baso % (Auto) % Immature Gran # (Auto) (0.00-0.02) K/uL Neut # (Auto) (1.4-6.5) K/uL Lymph # (Auto) (1.2-3.4) K/uL [place] # (Auto) (0.11-0.59) K/uL Eos # (Auto) (0-0.5) K/uL Baso # (Auto) (0-0.2) K/uL Sodium (136-145) mmol/L Potassium (3.5-5.1) mmol/L Chloride (98-107) mmol/L Carbon Dioxide (21-32) mmol/L Anion Gap (3-11) BUN (7-18) mg/dl Creatinine (0.6-1.2) mg/dl Est Cr Clr Drug Dosing ml/min Est GFR ( Amer) Est GFR (Non-Af Amer) BUN/Creatinine Ratio (10-20) Glucose (70-99) mg/dl Calcium (8.5-10.1) mg/dl Phosphorus 2.0 L (2.5-4.9) mg/dl Magnesium 2.0 (1.8-2.4) mg/dl Total Bilirubin (0.2-1) mg/dl AST (15-37) U/L ALT (12-78) U/L Alkaline Phosphatase (45-117) U/L Total Creatine Kinase (26-192) U/L CK-MB (CK-2) (0.5-3.6) ng/ml CK/CKMB % Calc Troponin I (0-0.045) ng/ml Total Protein (6.4-8.2) gm/dl Albumin (3.4-5.0) gm/dl Globulin (2.5-4.0) gm/dl Albumin/Globulin Ratio (0.9-2) Lipase (73-393) U/L HCG, Quant mIU/ml Urine Color Dark Yellow Urine Appearance Cloudy A (Clear) Urine pH 6.0 (4.5-7.5) Ur Specific [place] 1.021 (1.000-1.030) Urine Protein 1+ H (Negative) Urine Glucose (UA) Negative (Negative) Urine Ketones 4+ H (Negative) Urine Blood Trace H (Negative) Urine Nitrite Negative (Negative) Urine Bilirubin 2+ H (Negative) Urine Urobilinogen Negative (Negative) Ur Leukocyte Esterase 1+ H (Negative) Urine WBC (Auto) 5-10 H (0-5) /hpf Urine RBC (Auto) 5-10 H (0-4) /hpf U Hyaline Cast (Auto) 10-30 H (0-5) /lpf U Epithel Cells (Auto) >30 H (0-5) /lpf Urine Bacteria (Auto) Negative (Negative) Ur Renal Epithelial Cell 5-10 H (0-5) /lpf Urine Mucus Present A (None Prsent) Hepatitis A IgM Ab Hep Bs Antigen Neg (Neg) Hep B Core IgM Ab Hepatitis C Antibody Neg (Neg) Monoscreen 03/25/19 03/25/19 03/25/19 Range/Units 22:17 22:17 22:17 WBC 4.82 (4.8-10.8) K/uL RBC 4.99 (4.2-5.4) M/uL Hgb 15.1 (12.0-16.0) g/dL Hct 40.3 (37-47) % MCV 80.8 (80-100) fL MCH 30.3 (25-34) pg MCHC 37.5 H (32-36) g/dL RDW Std Deviation 40.8 (36.4-46.3) fL RDW Coeff of Rosalinda 14.0 (11.5-14.5) % Plt Count 240 (130-400) K/uL MPV 10.2 (7.4-10.4) fL Immature Gran % (Auto) 0.2 % Neut % (Auto) 53.3 % Lymph % (Auto) 28.0 % [place] % (Auto) 15.8 % Eos % (Auto) 1.9 % Baso % (Auto) 0.8 % Immature Gran # (Auto) 0.01 (0.00-0.02) K/uL Neut # (Auto) 2.57 (1.4-6.5) K/uL Lymph # (Auto) 1.35 (1.2-3.4) K/uL [place] # (Auto) 0.76 H (0.11-0.59) K/uL Eos # (Auto) 0.09 (0-0.5) K/uL Baso # (Auto) 0.04 (0-0.2) K/uL Sodium 134 L (136-145) mmol/L Potassium 2.3 L* (3.5-5.1) mmol/L Chloride 94 L (98-107) mmol/L Carbon Dioxide 25 (21-32) mmol/L Anion Gap 14.0 H (3-11) BUN 10 (7-18) mg/dl Creatinine 0.90 (0.6-1.2) mg/dl Est Cr Clr Drug Dosing 66.7 ml/min Est GFR ( Amer) 90.8 Est GFR (Non-Af Amer) 78.3 BUN/Creatinine Ratio 10.6 (10-20) Glucose 98 (70-99) mg/dl Calcium 9.1 (8.5-10.1) mg/dl Phosphorus (2.5-4.9) mg/dl Magnesium (1.8-2.4) mg/dl Total Bilirubin 2.3 H (0.2-1) mg/dl AST 113 H (15-37) U/L ALT 171 H (12-78) U/L Alkaline Phosphatase 41 L (45-117) U/L Total Creatine Kinase 75 (26-192) U/L CK-MB (CK-2) < 1.0 (0.5-3.6) ng/ml CK/CKMB % Calc TNP Troponin I < 0.015 (0-0.045) ng/ml Total Protein 7.4 (6.4-8.2) gm/dl Albumin 4.0 (3.4-5.0) gm/dl Globulin 3.4 (2.5-4.0) gm/dl Albumin/Globulin Ratio 1.2 (0.9-2) Lipase 243 (73-393) U/L HCG, Quant < 1 mIU/ml Urine Color Urine Appearance (Clear) Urine pH (4.5-7.5) Ur Specific [place] (1.000-1.030) Urine Protein (Negative) Urine Glucose (UA) (Negative) Urine Ketones (Negative) Urine Blood (Negative) Urine Nitrite (Negative) Urine Bilirubin (Negative) Urine Urobilinogen (Negative) Ur Leukocyte Esterase (Negative) Urine WBC (Auto) (0-5) /hpf Urine RBC (Auto) (0-4) /hpf U Hyaline Cast (Auto) (0-5) /lpf U Epithel Cells (Auto) (0-5) /lpf Urine Bacteria (Auto) (Negative) Ur Renal Epithelial Cell (0-5) /lpf Urine Mucus (None Prsent) Hepatitis A IgM Ab Hep Bs Antigen (Neg) Hep B Core IgM Ab Hepatitis C Antibody (Neg) Monoscreen Medications Administered Current Inpatient Medications Acetaminophen (Tylenol) 650 mg PO Q4H PRN PRN Reason: pain/fever Stop: 04/25/19 05:00 Atropine Sulfate (Atropine Sulfate) 0.5 mg IV Q1M PRN PRN Reason: PACU Use-HR<40 &/or Bradycardi Stop: 03/26/19 19:34 Ephedrine Sulfate (Ephedrine Sulfate) 5 mg IV Q5M PRN PRN Reason: PACU Use Only-SBP<90 mmHg Stop: 03/26/19 19:34 Fentanyl Citrate (Fentanyl Citrate) 25 mcg IV Q5M PRN PRN Reason: PACU Use Only-Pain Stop: 03/26/19 19:34 Potassium Chloride 40 meq/ (Lactated Ringer's) 1,020 mls @ 100 mls/hr IV .[id number] KYLEE Stop: 04/25/19 05:29 Last Infusion: 03/26/19 13:49 Dose: 0 mls/hr Documented by: Promethazine HCl 12.5 mg/ (Sodium Chloride) 50.5 mls @ 204 mls/hr IV ONCE PRN PRN Reason: PACU Use Only-Nausea/Vomiting Stop: 03/26/19 19:34 Sodium Chloride (Nss 1000ml) 1,000 mls @ 15 mls/hr IV .Q24H KYLEE Stop: 03/27/19 14:44 Magnesium Oxide (Mag-Ox) 400 mg PO BID [facility] Stop: 04/25/19 08:59 Last Admin: 03/26/19 08:53 Dose: 400 mg Documented by: Ondansetron HCl (Zofran) 4 mg IV Q6H PRN PRN Reason: Nausea Stop: 04/25/19 05:00 Last Admin: 03/26/19 09:03 Dose: 4 mg Documented by: Ondansetron HCl (Zofran) 4 mg IV ONCE PRN PRN Reason: PACU Use Only-Nausea/Vomiting Stop: 03/26/19 19:34 Resident Activity Tracking Resident Involvement: Resident Care Provided Care Provided: Adult Hospital Medicine
--- NOTE | 2019-03-26 15:34 | Anesthesiology Progress Note ---
Date of Service March 26, 2019 Anesthesia Post Procedure Vital Signs Vital Signs: Temp Pulse Pulse Resp BP BP Pulse Ox 03/26/19 15:30 73 20 109/74 100 03/26/19 15:19 67 20 109/70 98 03/26/19 15:03 77 20 101/61 97 03/26/19 14:06 36.8 C 70 18 103/77 99 03/26/19 11:46 36.6 C 81 18 105/71 99 03/26/19 07:38 68 03/26/19 07:33 37.0 C 65 18 105/71 98 03/26/19 05:49 36.6 C 71 18 104/71 95 03/26/19 05:00 86 03/26/19 04:49 76 18 101/71 97 03/26/19 04:00 77 16 109/73 96 03/26/19 03:05 93 H 24 122/73 98 03/26/19 02:24 84 18 113/75 99 03/26/19 01:03 84 16 127/79 98 03/26/19 00:19 87 16 127/84 98 03/25/19 22:05 36.5 C 102 H 22 108/81 97 Transfer of Care Handoff Completed per policy Notes Mental Status: alert / awake / arousable Patient Amnestic to Procedure: Yes Nausea / Vomiting: adequately controlled Pain: adequately controlled Airway Patency, RR, SpO2: stable & adequate BP & HR: stable & adequate Hydration State: stable & adequate Anesthetic Complications: no major complications apparent and Pt Satisfied with anesthetic care
--- NOTE | 2019-03-26 16:39 | Consultation Report ---
DATE OF CONSULTATION: 03/26/2019 REASON FOR EVALUATION: Abdominal pain, nausea, and vomiting. 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 She does have a past history of duodenal ulcers. She has not been taking any aspirin or nonsteroidal medications. She presented to the hospital where her liver tests were slightly elevated and she was admitted for further evaluation. A CT scan of the abdomen was performed which was essentially negative except maybe some mild fatty liver. PAST MEDICAL HISTORY: Negative. MEDICATIONS: The patient was on Pepcid, Zofran and amoxicillin. ALLERGIES: IBUPROFEN. FAMILY HISTORY: Noncontributory. SOCIAL HISTORY: The patient lives with a roommate. She does not smoke, does not use alcohol. She is finishing a Ph.D. at [employer]. REVIEW OF SYSTEMS: Negative except for the above items already mentioned. PHYSICAL EXAMINATION: GENERAL: The patient appears awake, alert, in no acute distress. VITAL SIGNS: Normal. She is afebrile. LUNGS: Clear. HEART: Showed a normal S1 and S2. Regular rate and rhythm without murmurs, rubs, or gallops. ABDOMEN: Soft and nontender. Liver and spleen were normal. EGD was performed in the endoscopy center today to evaluate her symptoms. Her EGD was entirely normal. IMPRESSION: The patient has a negative EGD with the above symptoms. I plan on checking for gallstones with an ultrasound. I suspect that she may have some underlying infection that is giving her the anorexia, vomiting, and abnormal liver tests, but we will do the ultrasound to evaluate things further. Also check a Monospot.
[2019-03-26] MEDS ORDERED: LACTATED RINGER'S 1,000 ML IV SCH (16:45)
[2019-03-26] MEDS ORDERED: POTASSIUM PHOSPHATE 15 MMOL in SODIUM CHLORIDE 0.9% 250 ML IV ONE (17:00)
[2019-03-26] MEDS: SODIUM CHLORIDE 0.9% 1000ML 1,000 ML IV SCH (17:20)
[2019-03-27] MEDS: SODIUM CHLORIDE 0.9% 1000ML 1,000 ML IV SCH ×2 (02:35→18:33)
[2019-03-27 06:39] LABS: Hepatitis A Antibody IgM NON-REACTIVE (NON-REACTIVE); Hepatitis B Core Antibody IgM NON-REACTIVE (NON-REACTIVE)
[2019-03-27 08:01] LABS: Hematocrit (blood only) 30.2 % (37-47); Hemoglobin 10.8 g/dL (12.0-16.0); Mean Corpuscular Hemoglobin 29.8 pg (25-34); Mean Corpuscular Hgb Conc 35.8 g/dL (32-36); Mean Corpuscular Volume 83.2 fL (80-100); Mean Platelet Volume 9.8 fL (7.4-10.4); Platelet Count 160 K/uL (130-400); RDW Coefficient of Variation 14.5 % (11.5-14.5); Red Blood Count 3.63 M/uL (4.2-5.4); White Blood Count 4.22 K/uL (4.8-10.8)
[2019-03-27 08:03] LABS: Albumin Level 2.7 gm/dl (3.4-5.0); BUN Creatinine Ratio 5.6 (10-20); Calcium 7.9 mg/dl (8.5-10.1); Creatinine Clr Calc Pharmacy 103.5 ml/min; Est GFR (African American) 130.8; Est GFR (Non-African American) 112.9; Magnesium 1.8 mg/dl (1.8-2.4); Potassium 3.1 mmol/L (3.5-5.1)
--- NOTE | 2019-03-27 08:05 | Ultrasound Report ---
US liver HISTORY: 43 years-old Female pain, N and V, ? gallstones acute generalized abdominal pain with nause a and vomiting COMPARISON: CT abdomen pelvis 03/25/2019 TECHNIQUE: Multiple real-time sonographic images of the abdominal right upper quadrant were obtained assessing grayscale appearance and color flow FINDINGS: The visualized portions of the pancreas appear unremarkable. Increased echogenicity of the liver sugg ests hepatic steatosis. No hepatic mass or intrahepatic biliary ductal dilation. Edematous gallbladde r wall thickening measures up to 4 mm. There is suggestion of trace pericholecystic edema. No shadowi ng cholelithiasis. Sonographic Carty sign not reported. Common bile duct is mildly dilated, 7 mm. No obstructing calculus or lesion. Imaged right kidney is unremarkable without hydronephrosis. IMPRESSION: 1. Mildly contracted gallbladder with edematous gallbladder wall thickening and suggestion of trace p ericholecystic edema. No associated cholelithiasis. These findings are nonspecific. Correlation can b e made with nuclear medicine hepatobiliary scan. 2. Mild dilation of the common bile duct, 7 mm. 3. Hepatic steatosis. ACT 112: Negative or not required by law. The above report was generated using voice recognition software. It may contain grammatical, syntax o r spelling errors. Electronically signed by: Gaurav Schwartz M.D. 03/27/2019 8:04 AM
--- NOTE | 2019-03-27 08:07 | Anesthesiology Progress Note ---
Date of Service March 27, 2019 Anesthesia Post Procedure Vital Signs Vital Signs: Temp Pulse Pulse Resp BP BP Pulse Ox 03/27/19 07:37 58 L 03/27/19 07:22 36.5 C 79 18 94/61 L 99 03/27/19 07:15 58 L 03/27/19 04:00 66 03/27/19 03:29 36.8 C 68 18 98/63 L 98 03/26/19 23:30 36.7 C 77 18 107/68 97 03/26/19 20:00 36.4 C L 90 18 133/86 99 03/26/19 19:52 109 H 03/26/19 17:14 74 03/26/19 16:17 36.6 C 77 20 106/73 99 03/26/19 15:30 73 20 109/74 100 03/26/19 15:19 67 20 109/70 98 03/26/19 15:03 77 20 101/61 97 03/26/19 14:06 36.8 C 70 18 103/77 99 03/26/19 11:46 36.6 C 81 18 105/71 99 Pain Intensity Head: Pain Intensity: 4 Notes Mental Status: alert / awake / arousable Patient Amnestic to Procedure: Yes Nausea / Vomiting: adequately controlled Pain: improving with treatment Airway Patency, RR, SpO2: stable & adequate BP & HR: stable & adequate Hydration State: stable & adequate Anesthetic Complications: no major complications apparent and Pt Satisfied with anesthetic care
[2019-03-27 08:09] LABS: Albumin Globulin Ratio 1.2 (0.9-2); Bilirubin,Total 1.1 mg/dl (0.2-1); Globulin 2.2 gm/dl (2.5-4.0); Phosphorus 2.8 mg/dl (2.5-4.9); Total Protein 4.9 gm/dl (6.4-8.2)
[2019-03-27 08:38] LABS: Basophils # (auto) 0.03 K/uL (0-0.2); Basophils % (auto) 0.7 %; Eosinophils # (auto) 0.19 K/uL (0-0.5); Eosinophils % (auto) 4.5 %; Lymphocytes # (auto) 2.48 K/uL (1.2-3.4); Lymphocytes % (auto) 58.8 %; Monocytes # (auto) 0.48 K/uL (0.11-0.59); Monocytes % (auto) 11.4 %; Neutrophils # (auto) 1.04 K/uL (1.4-6.5); Neutrophils % (auto) 24.6 %
[2019-03-27] MEDS: FAMOTIDINE 20 MG in SYRINGE 3 ML IV SCH (09:39)
[2019-03-27] MEDS: MAGNESIUM OXIDE 400 MG TAB PO SCH ×2 (09:39→21:36)
--- NOTE | 2019-03-27 16:38 | Progress Note ---
DATE: 03/27/2019 The patient is still having a little bit of nausea. She was able to tolerate some clear liquids yesterday but did have some nausea afterwards. Abdominal pain is still present but seems to be a little bit better. She did have an ultrasound of the liver and gallbladder earlier today which showed a mildly contracted gallbladder which was somewhat edematous, wall thickened, little bit of trace pericholecystic edema. No gallstones. Bile duct was 7 mm, which is in the range of normal, mild hepatic steatosis. She is scheduled for an MRCP later today. OBJECTIVE: Vital signs are normal. She is afebrile. Her abdomen is soft. There are no masses, tenderness, or hepatosplenomegaly. IMPRESSION: The patient has nausea, vomiting, abdominal pain and mild liver test abnormalities of unclear etiology. Abdominal imaging is remarkable only for some mild gallbladder wall thickening and pericholecystic edema. A biliary scan would not be possible until Saturday so in place of that we are going to try to do an MRCP later today to see if there are any signs of intrinsic gallbladder disease or common duct stones that could be contributing to her symptoms. If that is negative we may try advancing her to a full liquid diet and see how she tolerates that. I will be around on the weekend to see her as well.
--- NOTE | 2019-03-27 17:31 | Hospitalist Progress Note ---
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 Acute epigastric pain: - Transaminitis on initial labs CT abdomen shows no acute pathology, no signs of gallbladder disease - Patient with a history of gastric/duodenal ulcers, very high recent stress with pain feeling similar. - EGD did not demonstrate any concerns for duodenal ulcers - Liver US: Mildly contracted gallbladder with edematous gallbladder wall thi ckening and suggestion of trace pericholecystic edema - ordered MRCP as HIDA unable to be performed until Saturday - declining Protonix, Famotidine at this time Electrolyte abnormality: - Likely due to malnutrition in the setting of anorexia and emesis; Concern for severe nutritional depletion given patient's frail appearance and report of almost no food intake for 2 or more weeks - will continue to monitor - will continue to encourage patient that repletion of electrolytes is important Transaminitis: - with elevated alk phos - No signs of acute cholecystitis on imaging - Hepatitis panel negative Stress/anxiety: - with recent unstable home environment; Currently feels safe with her other female remain, notes her main social support here is her partner who lives in [place]. Her family is from [facility]. - high levels of stress in patient as she continues to worry why no particular medication/treatment is resolving her ill-feeling Diet: NPO; declining all IV fluids in favor of PO hydration, but unable to tolerate sufficient PO intake DVT prophylaxis: SCDs. Patient prefers to minimize unnatural medications. Code: Full code (2) Constipation: (3) Abdominal pain: (4) Malnutrition: Admission and Anticipated Discharge Date Admission Date: March 26, 2019 Supervising Physician Co-Signing Physician Notes Resident Physician Supervision Note: I independently interviewed and examined the patient and verified the mendoza history and physical, reviewed labs and image studies, discussed the case with the resident Dr. Johnson and agree with the findings and care plan. Subjective Patient continues to have abdominal pain, with associated nausea and vomiting. Continues to rethink the last month; thinks she has had approximately closer to 18kg of weight loss over this last month. Currently requesting all additional medications and supplements be held, until all imaging has been completed; as she continues to have overt concern about why she doesn't immediately feel better after anything is attempted. Review of Systems Review of Systems: All systems reviewed & are unremarkable except as noted in Subjective Physical Exam Constitutional: well developed and + thin Eyes: PERRL, conjunctivae normal, anicteric sclerae Respiratory: normal respiratory effort, lungs clear to auscultation Cardiovascular: RRR, no murmur, no edema Gastrointestinal (Abdomen): Percussion/Palpation: + abdomen tender (epigastric) and abdomen soft; no guarding, abdomen not rigid, no hepatosplenomegaly, no hernia and no abdominal mass Skin: + turgor decreased Results & Data ([facility]) Vital Signs (Past 12 Hours) Vital Signs Temp Pulse Pulse Resp BP Pulse Ox 03/27/19 16:29 74 03/27/19 14:50 36.8 C 75 18 113/75 99 03/27/19 12:04 36.6 C 89 18 110/71 99 03/27/19 07:37 58 L 03/27/19 07:22 36.5 C 79 18 94/61 L 99 03/27/19 07:15 58 L Laboratory Results 03/27/19 03/27/19 03/26/19 Range/Units 07:23 07:23 05:16 WBC 4.22 L (4.8-10.8) K/uL RBC 3.63 L (4.2-5.4) M/uL Hgb 10.8 L D (12.0-16.0) g/dL Hct 30.2 L (37-47) % MCV 83.2 (80-100) fL MCH 29.8 (25-34) pg MCHC 35.8 (32-36) g/dL RDW Std Deviation 44.0 (36.4-46.3) fL RDW Coeff of Rosalinda 14.5 (11.5-14.5) % Plt Count 160 (130-400) K/uL MPV 9.8 (7.4-10.4) fL Immature Gran % (Auto) 0.0 % Neut % (Auto) 24.6 % Lymph % (Auto) 58.8 % Keith % (Auto) 11.4 % Eos % (Auto) 4.5 % Baso % (Auto) 0.7 % Immature Gran # (Auto) 0.00 (0.00-0.02) K/uL Neut # (Auto) 1.04 L (1.4-6.5) K/uL Lymph # (Auto) 2.48 (1.2-3.4) K/uL Keith # (Auto) 0.48 (0.11-0.59) K/uL Eos # (Auto) 0.19 (0-0.5) K/uL Baso # (Auto) 0.03 (0-0.2) K/uL Sodium 141 (136-145) mmol/L Potassium 3.1 L (3.5-5.1) mmol/L Chloride 106 (98-107) mmol/L Carbon Dioxide 25 (21-32) mmol/L Anion Gap 10.0 (3-11) BUN 3 L (7-18) mg/dl Creatinine 0.58 L (0.6-1.2) mg/dl Est Cr Clr Drug Dosing 103.5 ml/min Est GFR ( Amer) 130.8 Est GFR (Non-Af Amer) 112.9 BUN/Creatinine Ratio 5.6 L (10-20) Glucose 82 (70-99) mg/dl Calcium 7.9 L (8.5-10.1) mg/dl Phosphorus 2.8 (2.5-4.9) mg/dl Magnesium 1.8 (1.8-2.4) mg/dl Total Bilirubin 1.1 H D (0.2-1) mg/dl AST 66 H (15-37) U/L ALT 102 H (12-78) U/L Alkaline Phosphatase 35 L (45-117) U/L Total Protein 4.9 L D (6.4-8.2) gm/dl Albumin 2.7 L (3.4-5.0) gm/dl Globulin 2.2 L (2.5-4.0) gm/dl Albumin/Globulin Ratio 1.2 (0.9-2) Hepatitis A IgM Ab NON-REACTIVE (NON-REACTIVE) Hep B Core IgM Ab NON-REACTIVE (NON-REACTIVE) Medications Administered Current Inpatient Medications Acetaminophen (Tylenol) 650 mg PO Q4H PRN PRN Reason: pain/fever Stop: 04/25/19 05:00 Sodium Chloride (Nss 1000ml) 1,000 mls @ 100 mls/hr IV .Q10H KYLEE Stop: 04/25/19 17:14 Last Infusion: 03/27/19 11:35 Dose: 0 mls/hr Documented by: Famotidine 20 mg/ Syringe 5 mls @ 2.5 mls/min IV QAM KYLEE Stop: 04/26/19 08:59 Last Admin: 03/27/19 09:39 Dose: 2.5 mls/min Documented by: Magnesium Oxide (Mag-Ox) 400 mg PO BID KYLEE Stop: 04/25/19 08:59 Last Admin: 03/27/19 09:39 Dose: 400 mg Documented by: Ondansetron HCl (Zofran) 4 mg IV Q6H PRN PRN Reason: Nausea Stop: 04/25/19 05:00 Last Admin: 03/26/19 20:37 Dose: 4 mg Documented by: Resident Activity Tracking Resident Involvement: Resident Care Provided Care Provided: Adult Hospital Medicine
--- NOTE | 2019-03-27 19:56 | Magnetic Resonance Report ---
MRCP CLINICAL HISTORY: Nausea and vomiting. Biliary dilatation. COMPARISON STUDY: Abdominal CT dated 03/27/2019. Abdominal ultrasound dated 03/27/2019. TECHNIQUE: Abdominal MRCP is performed using various T2-weighted sequences in the axial and coronal p lanes. IV contrast was not administered for this examination. 3-D reformats are created and assessed. FINDINGS: The gallbladder is mildly distended. No gallstones are identified. The gallbladder wall is markedly t hickened and edematous and there is trace pericholecystic fluid. There is no intrahepatic biliary nils james dilatation. The common bile duct is prominent measuring up to 7 mm in diameter. No intraluminal f illing defects identified to suggest choledocholithiasis. The pancreatic duct is normal in caliber. The unenhanced liver, spleen, adrenal glands, and pancreas are grossly normal. The kidneys are normal in size and without hydronephrosis. A 14 mm cyst is noted in the left kidney. There is no evidence o f bowel obstruction. No pleural effusion is identified. The bony structures are normal as imaged. IMPRESSION: 1. No gallstones are identified and there is no evidence of choledocholithiasis. 2. The gallbladder wall is markedly thickened and edematous and there is trace pericholecystic fluid. Findings are highly concerning for acalculous cholecystitis. Clinical correlation will be essential. If clinically warranted a nuclear hepatobiliary scan could be considered for further assessment. 3. Prominence of the common bile duct is similar to previous. This measures up to 7 mm. 4. Additional findings as above. Electronically signed by: Cricket Black M.D. 03/27/2019 7:54 PM
[2019-03-27] MEDS: ONDANSETRON INJ 2 MG/ML 2 ML VIAL IV PRN (20:42)
[2019-03-28] MEDS: ONDANSETRON INJ 2 MG/ML 2 ML VIAL IV PRN ×2 (04:26→23:27)
[2019-03-28] MEDS: SODIUM CHLORIDE 0.9% 1000ML 1,000 ML IV SCH ×2 (05:14→13:15)
[2019-03-28 06:06] LABS: Basophils # (auto) 0.03 K/uL (0-0.2); Basophils % (auto) 0.8 %; Eosinophils # (auto) 0.15 K/uL (0-0.5); Eosinophils % (auto) 3.8 %; Hematocrit (blood only) 34.6 % (37-47); Hemoglobin 11.8 g/dL (12.0-16.0); Lymphocytes % (auto) 48.5 %; Mean Corpuscular Hemoglobin 29.2 pg (25-34); Mean Corpuscular Hgb Conc 34.1 g/dL (32-36); Mean Corpuscular Volume 85.6 fL (80-100); Mean Platelet Volume 10.3 fL (7.4-10.4); Monocytes # (auto) 0.65 K/uL (0.11-0.59); Monocytes % (auto) 16.6 %; Neutrophils # (auto) 1.19 K/uL (1.4-6.5); Neutrophils % (auto) 30.3 %; Platelet Count 176 K/uL (130-400); RDW Coefficient of Variation 14.3 % (11.5-14.5); RDW Standard Deviation 44.5 fL (36.4-46.3); Red Blood Count 4.04 M/uL (4.2-5.4); White Blood Count 3.92 K/uL (4.8-10.8)
[2019-03-28 06:37] LABS: Albumin Level 3.2 gm/dl (3.4-5.0); BUN Creatinine Ratio 2.4 (10-20); Calcium 8.2 mg/dl (8.5-10.1); Creatinine Clr Calc Pharmacy 117.7 ml/min; Est GFR (African American) 136.5; Est GFR (Non-African American) 117.8; Potassium 2.7 mmol/L (3.5-5.1)
[2019-03-28 06:40] LABS: Albumin Globulin Ratio 1.3 (0.9-2); Bilirubin,Total 1.2 mg/dl (0.2-1); Globulin 2.6 gm/dl (2.5-4.0); Phosphorus 2.3 mg/dl (2.5-4.9); Total Protein 5.8 gm/dl (6.4-8.2)
[2019-03-28] MEDS: MAGNESIUM OXIDE 400 MG TAB PO SCH ×2 (08:06→20:55)
[2019-03-28] MEDS: POTASSIUM CHLORIDE / WTR 10 MEQ/100 ML PLCT IV SCH ×2 (08:12→12:16)
[2019-03-28] MEDS ORDERED: PIPERACILL/TAZOBAC CONSULT ACTIVE PRN (11:00)
--- NOTE | 2019-03-28 11:02 | Surgery Consultation ---
Date of Consultation March 28, 2019 Assessment & Plan (1) Abdominal pain: Patient has more nausea but has some upper abdominal discomfort that seems to have resolved and her abdominal exam is benign. She has had some very mild LFT elevation with a maximum bilirubin of 1.2. Her initial CT scan on admission showed no evidence of gallbladder abnormality however 2 days later ultrasound showed gallbladder wall thickening which was confirmed by MRCP. The etiology of this is unclear. Because it appears to be a calculus cholecystitis as a possible etiology I discussed cholecystectomy with her but she is not interested in having that done. She would like to try conservative measures first. She is scheduled for a hepatobiliary scan on Saturday and I would proceed with that. We will continue to follow. History of Present Illness Requesting Physician: Joan Cowan MD Attending Physician: c History of Present Illness I have been asked by Dr. Cowan to see this 43-year-old female who was admitted with a complaint of nausea vomiting and a burning sensation in the epigastrium. She has an unusual recent history. She developed nausea and loss of appetite. She was using some home remedy kinds of things to treat this when on a liquid, water diet. She does have a history of peptic ulcer disease with duodenal ulcers back in 2011 per EGD while she was in the hospital this time was normal. She has also had some LFT abnormalities. She underwent an ultrasound and an MRCP that shows thickening of the gallbladder wall but there is no cholelithiasis. There is no choledocholithiasis. The patient's history is truly for nausea. She does not have any pain that she describes. Fact she vehemently denies that. She has had a lot of stress recently and attributes much of her issue to the stress. She has not had fever or chills. Her bowels have been moving although mostly liquid. She had no melena or hematochezia. The patient stated that when she would eat and she has been eating bland foods the nausea would escalate. 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 Beliefs That Will Affect Care: None Current Living Situation: Other Current Living Situation Comment: Roommate Other Information That Helps Us Care for You: No Feels Safe at Home: Yes Safety Concerns: Feels Safe At This Time Smoking Status: Never smoker Hx Alcohol Use: No Hx Substance Use: No Review of Systems Review of Systems: All systems reviewed & are unremarkable except as noted in HPI & below Physical Exam Constitutional: well developed; no acute distress Neck: trachea midline Respiratory: normal respiratory effort, lungs clear to auscultation Cardiovascular: Rate/Rhythm: regular rate and regular rhythm Gastrointestinal (Abdomen): Inspection/Auscultation: normal bowel sounds; abdomen not distended Percussion/Palpation: abdomen soft; abdomen nontender Skin: no rashes, warm and dry Lymphatic: no cervical lymphadenopathy Results & Data Vital Signs (Past 12 Hours) Vital Signs Temp Pulse Pulse Resp BP Pulse Ox 03/28/19 08:00 36.6 C 77 18 108/72 96 03/28/19 04:11 62 03/28/19 02:52 36.7 C 84 20 111/70 98 03/27/19 23:14 36.8 C 66 20 107/72 98 Laboratory Results 03/28/19 03/28/19 Range/Units 05:52 05:52 WBC 3.92 L (4.8-10.8) K/uL RBC 4.04 L (4.2-5.4) M/uL Hgb 11.8 L (12.0-16.0) g/dL Hct 34.6 L (37-47) % MCV 85.6 (80-100) fL MCH 29.2 (25-34) pg MCHC 34.1 (32-36) g/dL RDW Std Deviation 44.5 (36.4-46.3) fL RDW Coeff of Rosalinda 14.3 (11.5-14.5) % Plt Count 176 (130-400) K/uL MPV 10.3 (7.4-10.4) fL Immature Gran % (Auto) 0.0 % Neut % (Auto) 30.3 % Lymph % (Auto) 48.5 % [place] % (Auto) 16.6 % Eos % (Auto) 3.8 % Baso % (Auto) 0.8 % Immature Gran # (Auto) 0.00 (0.00-0.02) K/uL Neut # (Auto) 1.19 L (1.4-6.5) K/uL Lymph # (Auto) 1.90 (1.2-3.4) K/uL [place] # (Auto) 0.65 H (0.11-0.59) K/uL Eos # (Auto) 0.15 (0-0.5) K/uL Baso # (Auto) 0.03 (0-0.2) K/uL Sodium 139 (136-145) mmol/L Potassium 2.7 L (3.5-5.1) mmol/L Chloride 100 (98-107) mmol/L Carbon Dioxide 28 (21-32) mmol/L Anion Gap 12.0 H (3-11) BUN 1 L (7-18) mg/dl Creatinine 0.51 L (0.6-1.2) mg/dl Est Cr Clr Drug Dosing 117.7 ml/min Est GFR ( Amer) 136.5 Est GFR (Non-Af Amer) 117.8 BUN/Creatinine Ratio 2.4 L (10-20) Glucose 81 (70-99) mg/dl Calcium 8.2 L (8.5-10.1) mg/dl Phosphorus 2.3 L (2.5-4.9) mg/dl Total Bilirubin 1.2 H (0.2-1) mg/dl AST 47 H (15-37) U/L ALT 100 H (12-78) U/L Alkaline Phosphatase 38 L (45-117) U/L Total Protein 5.8 L (6.4-8.2) gm/dl Albumin 3.2 L (3.4-5.0) gm/dl Globulin 2.6 (2.5-4.0) gm/dl Albumin/Globulin Ratio 1.3 (0.9-2) Diagnostic Findings CT abd pelvis wo con CLINICAL HISTORY: 43 years-old Female presenting with Pt c/o emesis, anorexia. TECHNIQUE: Multidetector CT of the abdomen and pelvis was performed without the use of intravenous contrast. IV contrast: None. One or more dose lowering techniques were used consistent with the principles of ALARA (as low as reasonably achievable), including automatic exposure control, mA or kV adjustment to individual patient size, and/or use of iterative reconstruction. COMPARISON: None. CT DOSE (mGy.cm): The estimated cumulative dose is 242.87 mGy.cm. FINDINGS: Probate Judge topogram: Unremarkable. Lung bases: Normal heart size. No pericardial or pleural effusion. No focal infiltrate or nodule at the lung bases. Liver: Normal morphology. Density suggestive of mild hepatic steatosis. Biliary: No gross biliary ductal dilatation allowing for noncontrast technique. Normal gallbladder. Pancreas: Normal noncontrast appearance. Spleen: Normal noncontrast appearance. Adrenal glands: Normal noncontrast appearance. Kidneys and ureters: Normal noncontrast appearance. No nephrolithiasis. No hydronephrosis. Normal ureters. Bladder: Incompletely evaluated secondary to underdistention. Pelvic organs: Normal noncontrast appearance. Bowel: Normal appendix. No bowel obstruction. Peritoneal cavity: No free fluid or intraperitoneal gas. Lymph nodes: No gross lymphadenopathy allowing for noncontrast technique. Vasculature: Normal noncontrast appearance. Abdominal wall: Normal. Musculoskeletal: Normal. IMPRESSION: 1. Allowing for noncontrast technique, no acute intra-abdominal pathology. 2. Possible mild hepatic steatosis. US liver HISTORY: 43 years-old Female pain, N and V, ? gallstones acute generalized abdominal pain with nausea and vomiting COMPARISON: CT abdomen pelvis 03/25/2019 TECHNIQUE: Multiple real-time sonographic images of the abdominal right upper quadrant were obtained assessing grayscale appearance and color flow FINDINGS: The visualized portions of the pancreas appear unremarkable. Increased echogenicity of the liver suggests hepatic steatosis. No hepatic mass or intrahepatic biliary ductal dilation. Edematous gallbladder wall thickening measures up to 4 mm. There is suggestion of trace pericholecystic edema. No shadowing cholelithiasis. Sonographic Carty sign not reported. Common bile duct is mildly dilated, 7 mm. No obstructing calculus or lesion. Imaged right kidney is unremarkable without hydronephrosis. IMPRESSION: 1. Mildly contracted gallbladder with edematous gallbladder wall thickening and suggestion of trace pericholecystic edema. No associated cholelithiasis. These findings are nonspecific. Correlation can be made with nuclear medicine hepatobiliary scan. 2. Mild dilation of the common bile duct, 7 mm. 3. Hepatic steatosis. MRCP CLINICAL HISTORY: Nausea and vomiting. Biliary dilatation. COMPARISON STUDY: Abdominal CT dated 03/27/2019. Abdominal ultrasound dated 03/27/2019. TECHNIQUE: Abdominal MRCP is performed using various T2-weighted sequences in the axial and coronal planes. IV contrast was not administered for this examination. 3-D reformats are created and assessed. FINDINGS: The gallbladder is mildly distended. No gallstones are identified. The gallbladd er wall is markedly thickened and edematous and there is trace pericholecystic fluid. There is no intrahepatic biliary ductal dilatation. The common bile duct is prominent measuring up to 7 mm in diameter. No intraluminal filling defects identified to suggest choledocholithiasis. The pancreatic duct is normal in caliber. The unenhanced liver, spleen, adrenal glands, and pancreas are grossly normal. The kidneys are normal in size and without hydronephrosis. A 14 mm cyst is noted in the left kidney. There is no evidence of bowel obstruction. No pleural effusion is identified. The bony structures are normal as imaged. IMPRESSION: 1. No gallstones are identified and there is no evidence of choledocholithiasis. 2. The gallbladder wall is markedly thickened and edematous and there is trace pericholecystic fluid. Findings are highly concerning for acalculous cholecystitis. Clinical correlation will be essential. If clinically warranted a nuclear hepatobiliary scan could be considered for further assessment. 3. Prominence of the common bile duct is similar to previous. This measures up to 7 mm. 4. Additional findings as above.
--- NOTE | 2019-03-28 11:12 | Progress Note ---
DATE: 03/28/2019 SUBJECTIVE: The patient continues to have abnormal liver tests with elevated ALT, AST, bilirubin. Alkaline phosphatase is normal. The patient had an ultrasound and then an MRCP that both showed thickened gallbladder wall, no stones, no common duct stones and there was some pericholecystic fluid as well suggesting either chronic or acalculous cholecystitis. PHYSICAL EXAMINATION: VITAL SIGNS: Normal. ABDOMEN: Soft. There is actually no tenderness in the right upper quadrant. IMPRESSION: The patient is having abdominal pain, vomiting and nausea with abnormal liver tests. There is no obvious other cause except her gallbladder. The patient is bargaining to try to keep her gallbladder, but we decided to proceed with a biliary scan on Saturday. In the meantime, put her on some Zosyn and full liquids. If her biliary scan is markedly abnormal, then she will probably need to have her gallbladder out. if it is functioning well, then we can probably switch her to oral antibiotics and monitor her as an outpatient. This plan was discussed with Dr. Cowan and Dr. Ty.
[2019-03-28] MEDS ORDERED: FAMOTIDINE 20 MG in SYRINGE 3 ML IV SCH (11:45)
[2019-03-28] MEDS ORDERED: PIPERACILLIN/TAZOBACTAM 3.375 GM in DEXTROSE 5% 100 ML IV ONE (12:00)
[2019-03-28] MEDS: FAMOTIDINE 20 MG in SYRINGE 3 ML IV SCH (12:17)
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
[2019-03-28] MEDS: PIPERACILLIN/TAZOBACTAM 3.375 GM in DEXTROSE 5% 100 ML IV SCH (18:48)
[2019-03-29] MEDS: PIPERACILLIN/TAZOBACTAM 3.375 GM in DEXTROSE 5% 100 ML IV SCH ×3 (02:13→17:59)
[2019-03-29] MEDS: SODIUM CHLORIDE 0.9% 1000ML 1,000 ML IV SCH ×2 (04:17→12:59)
[2019-03-29 05:53] LABS: Hematocrit (blood only) 31.8 % (37-47); Hemoglobin 10.9 g/dL (12.0-16.0); Mean Corpuscular Hemoglobin 29.3 pg (25-34); Mean Corpuscular Hgb Conc 34.3 g/dL (32-36); Mean Corpuscular Volume 85.5 fL (80-100); Mean Platelet Volume 10.2 fL (7.4-10.4); Platelet Count 162 K/uL (130-400); RDW Coefficient of Variation 14.4 % (11.5-14.5); Red Blood Count 3.72 M/uL (4.2-5.4); White Blood Count 3.94 K/uL (4.8-10.8)
[2019-03-29 06:23] LABS: Albumin Level 2.8 gm/dl (3.4-5.0); Calcium 7.9 mg/dl (8.5-10.1); Creatinine Clr Calc Pharmacy 111.1 ml/min; Est GFR (Non-African American) 115.6; Potassium 2.8 mmol/L (3.5-5.1)
[2019-03-29 06:25] LABS: Albumin Globulin Ratio 1.2 (0.9-2); Bilirubin,Total 1.3 mg/dl (0.2-1); Globulin 2.3 gm/dl (2.5-4.0); Total Protein 5.1 gm/dl (6.4-8.2)
[2019-03-29 06:36] LABS: Basophils # (auto) 0.02 K/uL (0-0.2); Basophils % (auto) 0.5 %; Eosinophils % (auto) 5.1 %; Lymphocytes # (auto) 2.33 K/uL (1.2-3.4); Lymphocytes % (auto) 59.1 %; Monocytes # (auto) 0.54 K/uL (0.11-0.59); Monocytes % (auto) 13.7 %; Neutrophils # (auto) 0.85 K/uL (1.4-6.5); Neutrophils % (auto) 21.6 %; Ovalocytes 1+
[2019-03-29] MEDS ORDERED: POTASSIUM CHLORIDE / WTR 10 MEQ/100 ML PLCT IV ONE (07:15)
[2019-03-29] MEDS ORDERED: MAGNESIUM SULFATE / D5W 1 GM/100 ML BAG IV SCH (07:15)
[2019-03-29] MEDS: POTASSIUM CHLORIDE / WTR 10 MEQ/100 ML PLCT IV SCH ×4 (07:37→12:52)
[2019-03-29] MEDS: FAMOTIDINE 20 MG in SYRINGE 3 ML IV SCH (09:25)
[2019-03-29] MEDS: POTASSIUM CHLORIDE 20 MEQ TABCR PO SCH ×3 (09:26→16:01)
[2019-03-29] MEDS: MAGNESIUM OXIDE 400 MG TAB PO SCH ×2 (09:28→21:47)
[2019-03-29] MEDS: ONDANSETRON INJ 2 MG/ML 2 ML VIAL IV PRN (09:31)
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
--- NOTE | 2019-03-29 11:42 | Progress Note ---
DATE: 03/29/2019 SUBJECTIVE: The patient reports that she is tolerating full liquids and not having any nausea or vomiting. Her vital signs are normal. She is afebrile since starting on Zosyn yesterday. Her aminotransferases have returned to normal. Bilirubin is still slightly elevated at 1.3, alkaline phosphatase is little bit low. IMPRESSION: The patient has nausea, vomiting, abnormal liver tests and abnormal imaging of the gallbladder. She is scheduled for a HIDA scan tomorrow. If it is functioning, then we may continue the antibiotics and as an outpatient if her biliary scan is abnormal significantly, then she may require cholecystectomy.
--- NOTE | 2019-03-29 12:08 | Surgery Progress Note ---
Date of Service March 29, 2019 Assessment & Plan (1) Acute epigastric pain: Pain has resolved Nausea persists although improved No vomiting Hypokalemia as per internal medicine team No acute abdomen at this time Has the thickened gallbladder wall with possible acalculous cholecystitis For hepatobiliary scan tomorrow Subjective Feels better today Able to tolerate clear liquids Still has some nausea but has not vomited Has not passed bowels or flatus Physical Exam Gastrointestinal (Abdomen): Inspection/Auscultation: normal bowel sounds; abdomen not distended Percussion/Palpation: abdomen soft; abdomen nontender and no abdominal mass Results & Data Vital Signs (Past 12 Hours) Vital Signs Temp Pulse Pulse Resp BP BP Pulse Ox 03/29/19 11:28 36.4 C L 79 20 115/81 96 03/29/19 07:48 36.5 C 70 18 102/66 98 03/29/19 07:26 74 03/29/19 03:26 36.9 C 62 19 114/73 96 Laboratory Results 03/29/19 03/29/19 Range/Units 05:30 05:30 WBC 3.94 L (4.8-10.8) K/uL RBC 3.72 L (4.2-5.4) M/uL Hgb 10.9 L (12.0-16.0) g/dL Hct 31.8 L (37-47) % MCV 85.5 (80-100) fL MCH 29.3 (25-34) pg MCHC 34.3 (32-36) g/dL RDW Std Deviation 45.0 (36.4-46.3) fL RDW Coeff of Rosalinda 14.4 (11.5-14.5) % Plt Count 162 (130-400) K/uL MPV 10.2 (7.4-10.4) fL Immature Gran % (Auto) 0.0 % Neut % (Auto) 21.6 % Lymph % (Auto) 59.1 % [place] % (Auto) 13.7 % Eos % (Auto) 5.1 % Baso % (Auto) 0.5 % Immature Gran # (Auto) 0.00 (0.00-0.02) K/uL Neut # (Auto) 0.85 L* (1.4-6.5) K/uL Lymph # (Auto) 2.33 (1.2-3.4) K/uL [place] # (Auto) 0.54 (0.11-0.59) K/uL Eos # (Auto) 0.20 (0-0.5) K/uL Baso # (Auto) 0.02 (0-0.2) K/uL Ovalocytes 1+ Sodium 140 (136-145) mmol/L Potassium 2.8 L (3.5-5.1) mmol/L Chloride 103 (98-107) mmol/L Carbon Dioxide 30 (21-32) mmol/L Anion Gap 7.0 (3-11) BUN 1 L (7-18) mg/dl Creatinine 0.54 L (0.6-1.2) mg/dl Est Cr Clr Drug Dosing 111.1 ml/min Est GFR ( Amer) 134.0 Est GFR (Non-Af Amer) 115.6 BUN/Creatinine Ratio 2.0 L (10-20) Glucose 96 (70-99) mg/dl Calcium 7.9 L (8.5-10.1) mg/dl Total Bilirubin 1.3 H (0.2-1) mg/dl AST 23 (15-37) U/L ALT 71 (12-78) U/L Alkaline Phosphatase 32 L (45-117) U/L Total Protein 5.1 L (6.4-8.2) gm/dl Albumin 2.8 L (3.4-5.0) gm/dl Globulin 2.3 L (2.5-4.0) gm/dl Albumin/Globulin Ratio 1.2 (0.9-2)
[2019-03-30] MEDS: PIPERACILLIN/TAZOBACTAM 3.375 GM in DEXTROSE 5% 100 ML IV SCH ×2 (02:23→14:15)
[2019-03-30 06:44] LABS: Alanine Aminotransferase 58 U/L (12-78); Albumin Globulin Ratio 1.3 (0.9-2); Albumin Level 2.8 gm/dl (3.4-5.0); Alkaline Phosphatase 30 U/L (45-117); Aspartate Aminotransferase 17 U/L (15-37); Blood Urea Nitrogen < 1 mg/dl (7-18); Calcium 8.4 mg/dl (8.5-10.1); Carbon Dioxide 30 mmol/L (21-32); Chloride 106 mmol/L (98-107); Creatinine Clr Calc Pharmacy 117.7 ml/min; Est GFR (African American) 136.5; Est GFR (Non-African American) 117.8; Globulin 2.2 gm/dl (2.5-4.0); Glucose 96 mg/dl (70-99); Potassium 3.3 mmol/L (3.5-5.1); Sodium 142 mmol/L (136-145)
[2019-03-30 07:37] LABS: Magnesium 1.9 mg/dl (1.8-2.4); Phosphorus 2.9 mg/dl (2.5-4.9)
[2019-03-30] MEDS ORDERED: SINCALIDE 1.1 MCG in 0.9 % SODIUM CHLORIDE 100 ML IV SCH (08:30)
--- NOTE | 2019-03-30 10:20 | Nuclear Medicine Report ---
NUCLEAR MEDICINE HEPATOBILIARY SCAN WITH EJECTION FRACTION HISTORY: Abnormal LFTs. COMPARISON: Abdominal ultrasound 03/27/2019. TECHNIQUE: Immediately following the intravenous administration of 5.6 mCi Tc-99m Choletec, dynamic a nterior abdominal imaging pre/post 1.1 mcg of Kinevac was performed. FINDINGS: Uniform hepatic tracer accumulation is shown. Prompt intrahepatic biliary excretion is seen. The gall bladder, common bile duct, and small bowel are all visualized by 25 minutes. This appearance represen ts the normal sequence of biliary excretion. The gall bladder ejection fraction following administration of Kinevac was 88% (normal >35%). IMPRESSION: 1. No evidence for cystic duct obstruction. 2. Gallbladder ejection fraction calculated to be 88 %. ACT 112: Negative or not required by law. Electronically signed by: Barrington Page M.D. 03/30/2019 10:18 AM
[2019-03-30] MEDS: MAGNESIUM OXIDE 400 MG TAB PO SCH (11:48)
[2019-03-30] MEDS: FAMOTIDINE 20 MG in SYRINGE 3 ML IV SCH (12:00)
[2019-03-30] MEDS: POTASSIUM CHLORIDE / WTR 10 MEQ/100 ML PLCT IV SCH ×4 (14:16→15:05)
--- NOTE | 2019-03-30 14:50 | Progress Note ---
DATE: 03/30/2019 The patient underwent a biliary scan today, which showed visualization of her gallbladder with an ejection fraction of 88%, which is normal. She is able to eat solid food and is doing better. She has no abdominal pain. IMPRESSION: The patient presented with nausea, vomiting, and abnormal liver tests with a marginally abnormal gallbladder. The patient is improving and I would recommend that she continue taking an oral antibiotic for approximately a week and then continue to advance her diet and follow up with her primary care doctor as an outpatient.
[2019-03-30] MEDS ORDERED: POTASSIUM CHLORIDE 20 MEQ TABCR PO STA (14:59)
--- NOTE | 2019-03-30 16:34 | Surgery Progress Note ---
Date of Service March 30, 2019 Assessment & Plan (1) Acute epigastric pain: No abdominal Pain Nausea and vomiting have resolved HIDA scan with no cystic duct obstruction possible biliary dyskinesia with increased EF of 88% afebrile, t. bili, lfts wnl Plan: No acute indication of cholecystectomy as there is no cystic duct obstruction. Patient has clinically improved and asymptomatic. LFTs normalized. Discussed with patient that if she were to continue to be symptomatic she may require outpatient cholecystectomy in the future. Advised low fat diet, avoid fried/greasy foods Follow-up with surgery as an outpatient prn okay for discharge from surgical standpoint Dr. Ty has seen patient and agrees with above Subjective feeling good today no abdominal pain no nausea or vomiting tolerated diet today Physical Exam Constitutional: WD/WN, vitals as above Respiratory: normal respiratory effort; no respiratory distress Gastrointestinal (Abdomen): Inspection/Auscultation: abdomen normal to inspection and normal bowel sounds; abdomen not distended Percussion/Palpa tion: abdomen soft; abdomen nontender, no guarding and abdomen not rigid Skin: no rashes, warm and dry Results & Data Vital Signs (Past 12 Hours) Vital Signs Temp Pulse Pulse Resp BP Pulse Ox 03/30/19 15:25 36.4 C L 94 H 20 94/66 L 95 03/30/19 11:25 36.8 C 88 16 123/79 98 03/30/19 07:33 36.5 C 69 16 120/78 98 03/30/19 05:09 76 Laboratory Results 03/30/19 03/30/19 Range/Units 05:45 05:45 Sodium 142 (136-145) mmol/L Potassium 3.3 L D (3.5-5.1) mmol/L Chloride 106 (98-107) mmol/L Carbon Dioxide 30 (21-32) mmol/L Anion Gap 6.0 (3-11) BUN < 1 L (7-18) mg/dl Creatinine 0.51 L (0.6-1.2) mg/dl Est Cr Clr Drug Dosing 117.7 ml/min Est GFR ( Amer) 136.5 Est GFR (Non-Af Amer) 117.8 BUN/Creatinine Ratio TNP Glucose 96 (70-99) mg/dl Calcium 8.4 L (8.5-10.1) mg/dl Phosphorus 2.9 (2.5-4.9) mg/dl Magnesium 1.9 (1.8-2.4) mg/dl Total Bilirubin 1.0 (0.2-1) mg/dl AST 17 (15-37) U/L ALT 58 (12-78) U/L Alkaline Phosphatase 30 L (45-117) U/L Total Protein 5.0 L (6.4-8.2) gm/dl Albumin 2.8 L (3.4-5.0) gm/dl Globulin 2.2 L (2.5-4.0) gm/dl Albumin/Globulin Ratio 1.3 (0.9-2) Diagnostic Findings NUCLEAR MEDICINE HEPATOBILIARY SCAN WITH EJECTION FRACTION HISTORY: Abnormal LFTs. COMPARISON: Abdominal ultrasound 03/27/2019. TECHNIQUE: Immediately following the intravenous administration of 5.6 mCi Tc- 99m Choletec, dynamic anterior abdominal imaging pre/post 1.1 mcg of Kinevac was performed. FINDINGS: Uniform hepatic tracer accumulation is shown. Prompt intrahepatic biliary excretion is seen. The gallbladder, common bile duct, and small bowel are all visualized by 25 minutes. This appearance represents the normal sequence of biliary excretion. The gall bladder ejection fraction following administration of Kinevac was 88% (normal >35%). IMPRESSION: 1. No evidence for cystic duct obstruction. 2. Gallbladder ejection fraction calculated to be 88 %.
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
[2019-03-31] MEDS ORDERED: FAMOTIDINE 20 MG TAB PO SCH (09:00)
--- NOTE | 2019-03-31 17:01 | Billing Data ---
Date of Service March 30, 2019 Coding Level of Care Code D/C Day Management >30 mins
== END 2019-03-30 19:22 | disposition home or self-care (01) | DRG 392 ==
LOC: ED 21:53 → 2N 03-26 04:07 → SUATTDRO 03-26 04:07 → 2N 03-26 04:49